=== PATIENT | male | born 1960 | race Caucasian/White ===

== ENCOUNTER → 2016-08-10 | Outpatient (REF) ==
--- NOTE | 2016-08-10 10:44 | DI ---
EXAM: Chest two views HISTORY: Screening, employment COMPARISON: 10/29/2014 TECHNIQUE: Two views of the chest were performed FINDINGS: The lungs are clear, excepting for stable granulomatous calcification. There is no pleur al effusion or pneumothorax. The heart is normal in size. The mediastinal contour is normal. Ther e are no acute abnormalities of the bones. IMPRESSION: No acute cardiopulmonary process.
== END ==
LOC: RAD 09:32
DX: Z02.89 Encounter for other administrative examinations (principal)

== ENCOUNTER 2019-02-27 17:26 | Emergency (ER) ==
[2019-02-27 17:36] VITALS: TEMP 97; BMI 26.9
[2019-02-27] MEDS ORDERED: MORPHINE 2 MG/ML SYRINGE IVP STA (18:25)
[2019-02-27] MEDS ORDERED: ZOFRAN 4 MG/2 ML IVP STA (18:25)
[2019-02-27] MEDS ORDERED: SODIUM CHLORIDE 1,000 ML IV STA ×2 (18:26→19:55)
--- NOTE | 2019-02-27 18:26 | ED.PDOC ---
General <VIN IBRAHIM - Last Filed: 02/27/19 20:35> Stated Complaint: man was on a 6 foot ladder , he lost his balance and fell on the left side . no l.o.c has low back pain Time Seen by Physician: 18:10 (seen with denise) Mode of Arrival: Wheelchair Information Source: Patient Exam Limitations: No limitations Nursing and Triage Documentation Reviewed and Agree: Yes Does patient meet sepsis criteria?: No System Inflammatory Response Syndrome: Not Applicable <NEGRO MOURA - Last Filed: 03/01/19 07:08> ED Provider: Dr. NEGRO MOURA Chief Complaint: Multiple Trauma Primary Care Provider: [facility] Sepsis Protocol: For patient's 13 years and over: Temp is 96.8 and below OR 101 and greater Pulse >90 BPM Resp >20/minute Acutely Altered Mental Status Are patient's symptoms suggestive of a new infection, such as: -Pneumonia -Skin, Soft Tissue -Endocarditis -UTI -Bone, Joint Infection -Implantable Device -Acute Abdominal Infection -Wound Infection -Meningitis -Blood Stream Catheter Infection -Unknown Trauma/Injury Complaint Exam - Trauma Complaint/Exam Location of Pain or Injury: Reports: Head, Neck, Chest, Abdomen, Back, Other ( left hip) Mechanism of Injury: Reports: Fall (6 feet) Onset/Duration: 2 hrs ago Symptoms Are: Still present Timing of Treatment: Immediate Initial Severity: Moderate Current Severity: Moderate Character: Reports: Sharp Aggravating: Reports: Movement Alleviating: Reports: Rest Associated Signs and Symptoms: Denies: LOC, Confusion, Memory loss, Lethargy, Vomiting, Bleeding, Bruising, Swelling, Extremity disuse, Painful respiration, Hoarseness, Dysphagia, Hemoptysis, Significant blood loss Related History: Denies: Alcohol abuse, Drug abuse, Alleged assault, Anticoagulants Penetrating Injury Risk Factors: Reports: None Related Surgical History: Reports: None Nexus Low Risk Criteria: No post-midline CS tender (has distracting left chest wall pain and left hip pain ), No evidence of intoxicat., No Altered LOC, No focal neuro deficit, No distracting injuries Glascow Coma Scale (see protocol): 15 Compartment Syndrome Risk Factors: Present: Pain Trauma Findings: Present: Neck spasm, Pelvic tenderness (left hip). Absent: [place] eyes, Hemotympanum, Nasal deformity, Dental tenderness, Dental injury, Dental malocclusion, Neck tenderness, SubQ Air, Crepitus, Airway obstructed, Trachea displaced, Labored respirations, Decreased breath sounds, Muffled heart sounds, Weak pulses, Absent pulses, Pelvic instability Differential Diagnoses: Fracture, Sprain, Strain <ZENYNEGRO Carol Last Filed: 03/01/19 07:08> Review of Systems - Review Of Systems Constitutional: Reports: No symptoms Eyes: Reports: No symptoms Ears, Nose, Mouth, Throat: Reports: No symptoms Respiratory: Reports: No symptoms Cardiac: Reports: Chest pain (left hip) GI: Reports: No symptoms : Reports: No symptoms Musculoskeletal: Reports: No symptoms Skin: Reports: No symptoms Neurological: Reports: No symptoms Endocrine: Reports: No symptoms Hematologic/Lymphatic: Reports: No symptoms All Other Systems: Reviewed and Negative <NEGRO MOURA Filed: 03/01/19 07:08> Past Medical History - Past Medical History Previously Healthy: Yes Endocrine: Reports: None Cardiovascular: Reports: None Respiratory: Reports: None Hematological: Reports: None Gastrointestinal: Reports: None Genitourinary: Reports: None Neuro/Psych: Reports: None Musculoskeletal: Reports: None Cancer: Reports: None - Surgical History General Surgical History: Reports: None - Family History Family History: Reports: None - Social History Smoking Status: Never smoker Hx Substance Use: No Alcohol Screening: Occasionally - Immunizations Tetanus Shot up to Date: No <ZENYNEGRO Carol Filed: 03/01/19 07:08> Physical Exam - Physical Exam Appearance: Well-appearing, No pain distress, Well-nourished Ill-appearing: Mild Pain Distress: Moderate Eyes: SYNDEY, EOMI, Conjunctiva clear ENT: Ears normal, Nose normal, Oropharynx normal Respiratory: Airway patent, Breath sounds clear, Breath sounds equal, Respirations nonlabored Cardiovascular: RRR, Pulses normal, No rub, No murmur GI/: Soft, Nontender, No masses, Bowel sounds normal, No Organomegaly Musculoskeletal: Limited ROM (left hip left chest wall no evidence of gross injury i.e. flank brusing or wounds over the areas of complaint) Skin: Warm, Dry, Normal color Neurological: Sensation intact, Motor intact, Reflexes intact, Cranial nerves intact, Alert, Oriented Psychiatric: Affect appropriate, Mood appropriate <NEGRO MOURA Last Filed: 03/01/19 07:08> Interpretation - Radiology Interpretation Radiology Interpretation By: Radiologist Radiology Results: Negative Exam Interpreted: CT Scan <ALFREDOCAMELIAVIN - Last Filed: 02/27/19 20:35> Physician Notification - Case Discussed Physician Notified: domo Time of Notification: 18:30 <NEGRO MOURA - Last Filed: 03/01/19 07:08> Critical Care Note - Critical Care Note Total Time (mins): 0 <NEGRO MOURA - Last Filed: 03/01/19 07:08> Course - Course Hematology/Chemistry: 02/27/19 18:35 02/27/19 18:35 <ALEXANDRIAVIN - Last Filed: 02/27/19 20:35> - Course Hematology/Chemistry: 02/27/19 18:35 02/27/19 18:35 <ZENYNEGRO - Last Filed: 03/01/19 07:08> - Course Orders, Labs, Meds: Lab Review 02/27/19 02/27/19 02/27/19 18:35 18:35 20:00 WBC 10.39 H RBC 4.14 L Hgb 14.0 Hct 39.6 L MCV 95.7 H MCH 33.8 H MCHC 35.4 RDW Coeff of [place] 13.5 Plt Count 297 Immature Gran % (Auto) 0.7 Neut % (Auto) 65.1 Lymph % (Auto) 22.7 [place] % (Auto) 8.9 Eos % (Auto) 2.0 Baso % (Auto) 0.6 Immature Gran # (Auto) 0.1 Neut # (Auto) 6.8 Lymph # (Auto) 2.4 [place] # (Auto) 0.9 Eos # (Auto) 0.2 Baso # (Auto) 0.1 Sodium 139.7 Potassium 3.89 Chloride 104.9 Carbon Dioxide 27.0 Anion Gap 11.69 BUN 17.0 Creatinine 1.11 H Estimated GFR (MDRD) 69.00 BUN/Creatinine Ratio 15.31 Glucose 106.7 H Calcium 9.71 Total Bilirubin 0.77 AST 32.6 ALT 37.2 Alkaline Phosphatase 61.8 Total Protein 8.03 Albumin 4.62 Globulin 3.41 Albumin/Globulin Ratio 1.35 Urine Color Dark Urine Clarity Clear Urine pH 5.5 Ur Specific [place] 1.025 Urine Protein 1+ Urine Glucose (UA) Negative Urine Ketones Trace Urine Blood Negative Urine Nitrite Negative Urine Bilirubin Negative Urine Urobilinogen 0.2 Ur Leukocyte Esterase Negative Urine Microscopic WBC 2-5 Ur Squamous Epith Cells 2-5 Hyaline Casts 2-5 Urine Mucus 2+ Urine Sperm Trace Orders Category Date Time Status NPO REMINDER: IMAGING ONCE CARE 02/27/19 18:21 Completed NPO REMINDER: IMAGING ONCE CARE 02/27/19 18:23 Completed ED IV/MEDIPORT/POWERPORT .ONCE EMERGENCY 02/27/19 18:25 Active CBC W/ AUTO DIFF Stat LAB 02/27/19 18:35 Completed COMPREHENSIVE METABOLIC PANEL Stat LAB 02/27/19 18:35 Completed URINALYSIS C & S IF INDICATED Stat LAB 02/27/19 20:00 Completed 0.9 % Sodium Chloride [Saline Flush] MEDS 02/27/19 18:25 Discontinued 1 syr IVF PRN PRN Hydromorphone HCl [Dilaudid 1 mg/ml Syringe] MEDS 02/27/19 19:55 Discontinued 1 mg IVP ONCE STA Morphine Sulfate [Morphine 2 mg/ml Syringe] MEDS 02/27/19 18:25 Discontinued 6 mg IVP ONCE STA Ondansetron HCl/Pf [Zofran 4 mg/2 ml] MEDS 02/27/19 18:25 Discontinued 4 mg IVP ONCE STA Sodium Chloride 0.9% [Sodium Chloride] 1,000 ml MEDS 02/27/19 18:26 Discontinued IV BOLUS Sodium Chloride 0.9% [Sodium Chloride] 1,000 ml MEDS 02/27/19 19:[address] ABDOMEN/PELVIS W CONTRAST Stat RADS 02/27/19 18:[address] CERVICAL SPINE W/O CONTRAST Stat RADS 02/27/19 18:[address] CHEST W/CONTRAST Stat RADS 02/27/19 18:[address] HEAD W/O CONTRAST Stat RADS 02/27/19 18:[address] LUMBAR SPINE W/O CONTRAST Stat RADS 02/27/19 18:[address] THORACIC SPINE W/O CONTRAST Stat RADS 02/27/19 18:19 Completed FEMUR, LEFT 2 VIEWS Stat RADS 02/27/19 18:23 Completed Medications Discontinued Medications Generic Name Dose Route Start Last Admin Trade Name Freq PRN Reason Stop Dose Admin Hydromorphone HCl 1 mg 02/27/19 19:55 02/27/19 20:04 Dilaudid 1 Mg/Ml Syringe IVP 02/27/19 19:56 1 mg ONCE STA Administration Sodium Chloride 1,000 mls @ 1,000 mls/hr 02/27/19 18:26 02/27/19 18:45 Sodium Chloride IV 02/27/19 19:25 1,000 mls/hr BOLUS STA Administration Sodium Chloride 1,000 mls @ 1,000 mls/hr 02/27/19 19:55 02/27/19 20:05 Sodium Chloride IV 02/27/19 20:54 1,000 mls/hr BOLUS STA Administration Morphine Sulfate 6 mg 02/27/19 18:25 02/27/19 18:46 Morphine 2 Mg/Ml Syringe IVP 02/27/19 18:26 6 mg ONCE STA Administration Ondansetron HCl 4 mg 02/27/19 18:25 02/27/19 18:53 Zofran 4 Mg/2 Ml IVP 02/27/19 18:26 4 mg ONCE STA Administration Sodium Chloride 1 syr 02/27/19 18:25 Saline Flush IVF PRN PRN To flush IV Vital Signs: Temp Pulse Resp BP Pulse Ox 02/27/19 18:58 157/98 H 02/27/19 17:27 97.0 F L 89 22 153/86 H 99 Departure - Departure Time of Disposition: 20:35 <VIN IBRAHIM - Last Filed: 02/27/19 20:35> - Departure Pt referred to PMD for follow-up: Yes IPMP verified?: No Disposition Discussed With: Patient <LANAZAYNEGRO - Last Filed: 03/01/19 07:08> - Departure Disposition: HOME SELF-CARE Discharge Problem: Hip pain, left Low back pain Qualifiers: Chronicity: acute Back pain laterality: left Sciatica presence: without sciatica Qualified Code(s): M54.5 - Low back pain Instructions: Low Back Strain (ED), Contusion in Adults (ED) Condition: Good Additional Instructions: Please call your Family Physician as soon as possible to schedule a follow-up appointment. Prescriptions: Hydrocodone Bit/Acetaminophen [[place] 5-325] 1 each PO Q6HR PRN #15 tablet PRN Reason: severe pain Ibuprofen [Motrin] 600 mg PO Q6H PRN #30 tablet PRN Reason: Analgesia Allergies/Adverse Reactions: Allergies cefoxitin sodium [From Mefoxin] Adverse Reaction (Severe, Unverified 02/27/19 17 :36) Anaphylaxis Penicillins Adverse Reaction (Severe, Unverified 02/27/19 17:36) Anaphylaxis Home Medications: Ambulatory Orders Hydrocodone Bit/Acetaminophen [[place] 5-325] 1 each PO Q6HR PRN #15 tablet Ibuprofen [Motrin] 600 mg PO Q6H PRN #30 tablet 02/27/19
[2019-02-27 18:58] VITALS: BP 157/98
--- NOTE | 2019-02-27 19:19 | CT ---
EXAM: CT of the head without contrast History: Head trauma. Technique: Multiplanar CT images through the head were obtained without the administration of IV con trast Findings: The visualized paranasal sinuses are clear in general. Hypoplastic bilateral mastoid air cells. No acute calvarial abnormalities. Intracranially the ventricular and cisternal spaces are normal in size, shape and configuration for a patient of this age. No dominant mass or midline shift. No hydrocephalous. No acute intracranial hemorrhage or abnormal extraaxial fluid collections. Impression: No acute intracranial process
--- NOTE | 2019-02-27 19:38 | CT ---
EXAM: CT cervical spine without contrast HISTORY: Fell off stepladder 6 feet TECHNIQUE: Multi-slice transaxial helical with coronal and sagittal reformatted views. COMPARISON: None FINDINGS: No acute fracture or spondylolisthesis. Preserved normal cervical lordosis. Anatomic alignment of t he facet joints. Vertebral body heights are preserved. Diffuse spondylosis with this space narrowing, endplate spurring. Multilevel posterior disc osteophy te complex, most prominent C3-4 and C4-5 which cause a least mild now narrowing. Diffuse moderate fo raminal narrowing of the cervical spine. Paraspinal soft tissues are unremarkable. Small amount of debris/sputum within the upper thoracic tr achea. Lung apices are clear. IMPRESSION: 1. No acute osseous abnormality. 2. Diffuse cervical spondylosis with moderate canal narrowing at C4-5 and multilevel foraminal narro wing. MRI cervical spine may be obtained as clinically indicated.
--- NOTE | 2019-02-27 19:45 | CT ---
EXAM: CT scan thoracic spine HISTORY: Fall COMPARISON: None. FINDINGS: Contiguous axial images obtained thoracic spine utilizing 3-mm collimation. Sagittal and coronal reconstructions were imaged and reviewed.. The vertebral bodies are normal in height and ali gnment. Mild ventral spondylitic changes are seen within the upper and mid thoracic spine. There is no acute fracture or dislocation. Facet arthropathy is seen within the lower thoracic spine.. Cent ral canal and foramen are patent throughout. IMPRESSION: No acute findings
[2019-02-27] MEDS ORDERED: DILAUDID 1 MG/ML SYRINGE IVP STA (19:55)
--- NOTE | 2019-02-27 20:09 | DI ---
EXAM: Two views of the left femur. History: Left leg pain and trauma. Findings: No acute fracture or dislocation. Joint spaces are relatively preserved. No radiopaque f oreign bodies. Impression: No acute osseous abnormality
--- NOTE | 2019-02-27 20:09 | CT ---
EXAM: CT of the chest, abdomen pelvis with contrast History: Chest and abdominal trauma. Left rib pain Comparison: CT lumbar spine 02/27/2019 Technique: Multiplanar CT images through the chest, abdomen pelvis were obtained following administr ation of IV contrast Findings: Heart size is normal. No pericardial effusion. Great vessels are unremarkable. No patho logically enlarged thoracic lymph nodes. No consolidation. Dependent atelectasis. No pleural fluid and no pneumothorax. No suspicious lung masses or lung nodules. The liver is fatty. No gallstones identified by CT. Calcified granulomas within the spleen. Pancre as is normal. Adrenal glands are within normal limits. Kidneys are normal. There is no bowel obstr uction. The appendix is not seen. No bladder wall thickening. No abdominal aortic aneurysm. No fr ee air and no ascites. Prostate is not enlarged. Moderate stool seen within the rectum. No enlarge d lymph nodes. No acute osseous abnormalities. Moderate degenerative disc disease at L4-L5. Impression: 1. No acute traumatic injury identified within the chest, abdomen or pelvis. 2. Hepatic steatosis
--- NOTE | 2019-02-27 20:11 | CT ---
EXAM: CT scan lumbar spine HISTORY: Fall COMPARISON: None. FINDINGS: Contiguous axial images were obtained through the lumbar spine utilizing 3-mm collimation. Sagittal and coronal reconstructions were imaged and reviewed. The vertebral bodies are normal in height and alignment. Degenerate disc disease is noted at L4 - L5. The facet joints are intact. At L2-L3 there is eccentric leftward disc bulge narrowing the left neural foramen. At L3 - L4 there is triangulation of the central canal with bilateral neural foraminal narrowing. At L4-L5 spondylitic bulge with ligamentum flavum and facet hypertrophy triangulate the central canal narrowing both neura l foramen. At L5-S1 there is a moderate disc bulge with facet arthropathy. IMPRESSION: No acute findings
== END 2019-02-27 20:40 | disposition home or self-care (01) ==
LOC: ED 17:26
DX: M25.552 Pain in left hip (principal); M54.5 Low back pain; S09.90XA Unspecified injury of head, initial encounter; S39.91XA Unspecified injury of abdomen, initial encounter; S29.9XXA Unspecified injury of thorax, initial encounter; S19.9XXA Unspecified injury of neck, initial encounter; W11.XXXA Fall on and from ladder, initial encounter
CPT/HCPCS: 36415; 80053; 81001; 85025; 96361; 96374; 96375; 99283

== ENCOUNTER 2019-03-07 16:19 | Outpatient (CLI) ==
--- NOTE | 2019-03-07 16:58 | DI ---
EXAM: Chest two views HISTORY: Fall from ladder. FINDINGS: Normal heart size. No acute infiltrates are seen. No vascular congestion. There is no c onsolidation, visible pleural fluid or pneumothorax. Bones reveal no acute fracture. IMPRESSION: No acute findings.
== END 2019-03-07 16:20 | disposition home or self-care (01) ==
LOC: RAD 16:19
PROVIDERS: ATTEND General Practice
DX: S29.9XXA Unspecified injury of thorax, initial encounter (principal); W11.XXXA Fall on and from ladder, initial encounter